=== PATIENT | female | born 1980 | race American Indian/Alaskan Native ===

== ENCOUNTER 2018-09-04 15:59 | Emergency (ER) | payer OTHER ==
[2018-09-04] MEDS ORDERED: TYLENOL PO ONE (16:11)
[2018-09-04 16:14] VITALS: BP 159/118
--- NOTE | 2018-09-04 16:14 | Emergency Department Report ---
Blank Doc - Documentation Documentation: 38 y/o female reports that she is 6 weeks preg comes in for vaginal bleed ing and pelvic cramp.
[2018-09-04 16:30] LABS: Basophils # (Auto) 0.1 K/mm3 (0.0-0.1); Eosinophils # (Auto) 0.1 K/mm3 (0.0-0.4); Eosinophils % (Auto) 1.6 % (0.0-4.3); Hematocrit 35.9 % (30.3-42.9); Hemoglobin 11.7 gm/dl (10.1-14.3); Lymphocytes # (Auto) 2.1 K/mm3 (1.2-5.4); Mean Corpuscular HGB Conc 33 % (30-34); Mean Corpuscular Volume 87 fl (79-97); Monocytes # (Auto) 0.3 K/mm3 (0.0-0.8); Platelet Count 383 K/mm3 (140-440); Red Blood Count 4.11 M/mm3 (3.65-5.03); Red Cell Distribution Width 14.7 % (13.2-15.2)
[2018-09-04 16:41] LABS: Alanine Aminotransferase 17 units/L (7-56); Albumin 3.4 g/dL (3.9-5); BUN/Creatinine Ratio 7; Blood Urea Nitrogen 5 mg/dL (7-17); Calcium 8.5 mg/dL (8.4-10.2); Hemolysis Index 1
[2018-09-04 17:45] LABS: Bilirubin,Urine NEG (Negative); Blood,Urine LG (Negative); Color,Urine Amber (Yellow); Mucus,Urine FEW /HPF
[2018-09-04 17:46] LABS: RBC,Urine > 182.0 /HPF (0.0-6.0); WBC,Urine > 182.0 /HPF (0.0-6.0)
[2018-09-04] MEDS ORDERED: PERCOCET 5/325 PO STA (19:27)
[2018-09-04] MEDS ORDERED: LEVAQUIN PO ONE (19:27)
--- NOTE | 2018-09-04 20:31 | Emergency Department Report ---
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 States she took 2 Penza test about 6 weeks ago and had 1 positive test in 1 negative test. Currently having some occasional cramps. No fever, chills, sweats, chest pain, palpitations, nausea or vomiting. has been experiencing some increased urinary urgency decreased urinary production and little bit of discomfort with urination.. -: Sudden Radiation: non-radiation Severity scale (0 -10): 9 Quality: dull, constant Improves with: none Worsens with: none Associated Symptoms: denies: chest pain, diaphoresis, fever/chills, loss of appetite, malaise, nausea/vomiting, rash, shortness of breath, syncope, weakness Treatments Prior to Arrival: none - Related Data Previous Rx's Medication Instructions Recorded Last Taken Type Ciprofloxacin HCl [Cipro] 500 mg PO BID #20 tablet 09/04/18 Unknown Rx Ketorolac [Toradol] 10 mg PO Q6H PRN #15 tablet 09/04/18 Unknown Rx Phenazopyridine [Pyridium] 200 mg PO BID PRN #10 tab 09/04/18 Unknown Rx Allergies Allergy/AdvReac Type Severity Reaction Status Date / Time No Known Allergies Allergy Unverified 09/04/18 16:01 ED Review of Systems ROS: Stated complaint: VAGINAL BLEEDING/PAIN Other details as noted in HPI Constitutional: denies: chills, fever Eyes: denies: eye pain, eye discharge, vision change ENT: denies: ear pain, throat pain Respiratory: denies: cough, shortness of breath, wheezing Cardiovascular: denies: chest pain, palpitations Endocrine: no symptoms reported Gastrointestinal: denies: abdominal pain, nausea, diarrhea Genitourinary: denies: urgency, dysuria, discharge Musculoskeletal: denies: back pain, joint swelling, arthralgia Skin: denies: rash, lesions Neurological: denies: headache, weakness, paresthesias Psychiatric: denies: anxiety, depression Hematological/Lymphatic: denies: easy bleeding, easy bruising ED Past Medical Hx - Past Medical History Previous Medical History?: No - Surgical History Hx Cholecystectomy: Yes - Social History Smoking Status: Current Every Day Smoker Substance Use Type: Alcohol, Marijuana - Medications Home Medications: Home Medications Medication Instructions Recorded Confirmed Last Taken Type Ciprofloxacin HCl [Cipro] 500 mg PO BID #20 tablet 09/04/18 Unknown Rx Ketorolac [Toradol] 10 mg PO Q6H PRN #15 tablet 09/04/18 Unknown Rx Phenazopyridine [Pyridium] 200 mg PO BID PRN #10 tab 09/04/18 Unknown Rx ED Physical Exam - General Limitations: No Limitations General appearance: alert, in no apparent distress - Head Head exam: Present: atraumatic, normocephalic - Eye Eye exam: Present: normal appearance, PERRL, EOMI Pupils: Present: normal accommodation - ENT ENT exam: Present: normal exam, normal orophraynx, mucous membranes moist - Neck Neck exam: Present: normal inspection, full ROM - Respiratory Respiratory exam: Present: normal lung sounds bilaterally. Absent: respiratory distress, rales, rhonchi, chest wall tenderness, accessory muscle use, decreased breath sounds - Cardiovascular Cardiovascular Exam: Present: regular rate, normal rhythm. Absent: systolic murmur, diastolic murmur, rubs, gallop - GI/Abdominal GI/Abdominal exam: Present: soft, normal bowel sounds. Absent: tenderness, guarding, hyperactive bowel sounds, hypoactive bowel sounds, organomegaly, mass - Extremities Exam Extremities exam: Present: normal inspection, full ROM, normal capillary refill - Back Exam Back exam: Present: normal inspection, full ROM, CVA tenderness (R). Absent: CVA tenderness (L) - Neurological Exam Neurological exam: Present: alert, oriented X3, CN II-XII intact, normal gait - Psychiatric Psychiatric exam: Present: normal affect, normal mood. Absent: flat affect, manic - Skin Skin exam: Present: warm, dry, intact, normal color. Absent: rash ED Course Vital Signs 09/04/18 09/04/18 09/04/18 16:08 16:43 20:32 Temperature 99.2 F Pulse Rate 122 H 104 H Respiratory 20 18 20 Rate Blood Pressure 159/118 O2 Sat by Pulse 99 100 Oximetry ED Medical Decision Making - Lab Data Result diagrams: 09/04/18 16:13 09/04/18 16:13 Critical care attestation.: If time is entered above; I have spent that time in minutes in the direct care of this critically ill patient, excluding procedure time. ED Disposition Clinical Impression: UTI (urinary tract infection), Pelvic pain Disposition: TO HOME OR SELFCARE Is pt being admited?: No Does the pt Need Aspirin: No Condition: Stable Instructions: Phenazopyridine (By mouth), Urinary Tract Infection in Women (ED) Prescriptions: Ciprofloxacin HCl [Cipro] 500 mg PO BID #20 tablet Phenazopyridine [Pyridium] 200 mg PO BID PRN #10 tab PRN Reason: dysuria Ketorolac [Toradol] 10 mg PO Q6H PRN #15 tablet PRN Reason: Pain Referrals: JOANNA RÍOS MD [Primary Care Provider] - 3-5 Days
== END 2018-09-04 20:52 | disposition home or self-care (01) ==
LOC: ED 15:59
DX: O23.41 Unspecified infection of urinary tract in pregnancy, first trimester (principal); O99.331 Smoking (tobacco) complicating pregnancy, first trimester; F17.200 Nicotine dependence, unspecified, uncomplicated; F12.10 Cannabis abuse, uncomplicated; Z90.49 Acquired absence of other specified parts of digestive tract; Z3A.01 Less than 8 weeks gestation of pregnancy
CPT/HCPCS: 36415; 80053; 81001; 84702; 85025; 86900; 86901